=== PATIENT | female | born 1970 | race Two or more races ===

== ENCOUNTER 2023-06-03 16:49 | Emergency (ER) | payer OTHER ==
[~2023-06-03] VITALS: Ht 157.5 cm; Wt 59.0 kg
[2023-06-03] MEDS ORDERED: NORFLEX100MG PO (20:00)
[2023-06-03] MEDS ORDERED: MOBIC7.5 MG PO (20:00)
== END 2023-06-03 20:02 | disposition home or self-care (01) ==
LOC: ER 16:49
PROVIDERS: General Practice
DX: R10.30 Lower abdominal pain, unspecified (principal); M25.552 Pain in left hip
CPT/HCPCS: 36415; 74176; 96365; 96366; 99284; J1885; J3490